=== PATIENT | female | born 1995 | race Caucasian/White ===

== ENCOUNTER → 2022-05-30 | Outpatient (CLI) | payer BC, OTHER ==
[2022-05-30 16:37] LABS: URINE CREATININE FOR RATIO 21 MG/DL (30-125)
[2022-05-30 16:38] LABS: URINE PROTEIN FOR RATIO ONLY < 6 MG/DL (6-12)
== END ==
LOC: LABNPT 15:51
PROVIDERS: ATTEND Obstetrics & Gynecology
DX: O13.9 Gestational [pregnancy-induced] hypertension without significant proteinuria, unspecified trimester (principal); Z3A.00 Weeks of gestation of pregnancy not specified
CPT/HCPCS: 82570; 84156

== ENCOUNTER 2022-08-25 01:59 | Outpatient (CLI) | payer BC ==
[~2022-08-25] VITALS: Ht 175.3 cm; Wt 120.2 kg
[2022-08-25 02:22] LABS: BILIRUBIN,URINE NEGATIVE (NEGATIVE); CLARITY,URINE CLEAR; COLOR,URINE YELLOW; GLUCOSE, URINE (UA) NEGATIVE (NEGATIVE); KETONES,URINE NEGATIVE (NEGATIVE); LEUKOCYTE ESTERASE ,URINE NEGATIVE (NEGATIVE); NITRITE,URINE NEGATIVE (NEGATIVE); PROTEIN,URINE NEGATIVE (NEGATIVE)
[2022-08-25 02:28] LABS: BACTERIA,URINE TRACE /HPF; RBC,URINE 0-2 /HPF; WBC,URINE 0-2 /HPF
[2022-08-25 02:31] VITALS: BP 127/85
[2022-08-25] MEDS ORDERED: PREN1TAB79 PO (02:52)
--- NOTE | 2022-08-25 12:06 | OB Triage Report ---
Standard Progress Note Progress Notes/Assess & Plan Date Seen by a Provider: Aug 25, 2022 Time Seen by a Provider: 04:00 Expected Date of Delivery: Aug 20, 2022 Gestational Age in Weeks: 40 Gestational Age in Days: 5 LMP/JOCELYNE Comment: As above. Progress/Assessment & Plan OB Pelts Skinner: Patient at 40 5/7 weeks today, presents for labor check. No leakage of fluid or bleeding. Vital signs stable, UA negative. Noted to have Reactive NST, Category I FHR tracing by OB RN, with mild contractions to palpation q3-7 minutes that do not appear to be very uncomfortable to patient. Cervix exam unchanged at 1.5 cm dilation and thick. Patient lives near hospital. She is scheduled for IOL tomorrow evening. Given routine labor precautions. Final Diagnosis 40 5/7 weeks Third trimester Not in labor JAMILA RODRIGUES DO Aug 25, 2022 12:06
== END 2022-08-25 04:25 | disposition home or self-care (01) ==
LOC: WSo 01:59 → LDRP 02:00 → WSo 04:25
PROVIDERS: ATTEND Obstetrics & Gynecology
DX: O62.9 Abnormality of forces of labor, unspecified (principal); Z3A.00 Weeks of gestation of pregnancy not specified
CPT/HCPCS: 81000; 99213

== ENCOUNTER 2022-08-26 01:05 | Inpatient (IN) | payer BC ==
[2022-08-26] VITALS (71 sets, daily range): BP systolic 102–162; BP diastolic 57–95
[~2022-08-26] VITALS: Ht 175.3 cm; Wt 118.4 kg
[~2022-08-26 01:05] MED LIST: PREN1TAB79 PO
[2022-08-26 01:41] LABS: BILIRUBIN,URINE NEGATIVE (NEGATIVE); CLARITY,URINE CLEAR; COLOR,URINE YELLOW; GLUCOSE, URINE (UA) NEGATIVE (NEGATIVE); KETONES,URINE 2+ (NEGATIVE); LEUKOCYTE ESTERASE ,URINE TRACE (NEGATIVE); NITRITE,URINE NEGATIVE (NEGATIVE); PH,URINE 6.5 (5-9); PROTEIN,URINE NEGATIVE (NEGATIVE)
[2022-08-26 01:44] LABS: BASOPHILS % (AUTO) 0 % (0-10); EOSINOPHILS % (AUTO) 0 % (0-10); HEMATOCRIT 37 % (35-52); HEMOGLOBIN 12.8 g/dL (11.5-16.0); LYMPHOCYTES # (AUTO) 1.6 10^3/uL (1.0-4.0); LYMPHOCYTES % (AUTO) 10 % (12-44); MEAN CORPUSCULAR HEMOGLOBIN 30 pg (25-34); MEAN CORPUSCULAR HGB CONC 35 g/dL (32-36); MEAN CORPUSCULAR VOLUME 87 fL (80-99); MEAN PLATELET VOLUME 11.1 fL (9.0-12.2); MONOCYTES # (AUTO) 0.7 10^3/uL (0.0-1.0); MONOCYTES % (AUTO) 4 % (0-12); NEUTROPHILS # (AUTO) 13.2 10^3/uL (1.8-7.8); NEUTROPHILS % (AUTO) 84 % (42-75); PLATELET COUNT 246 10^3/uL (130-400); WHITE BLOOD COUNT 15.7 10^3/uL (4.3-11.0)
[2022-08-26] MEDS ORDERED: MINERAL OIL 30 ML UDC TOP PRN (01:45)
[2022-08-26] MEDS ORDERED: fentaNYL 2 mcg/ml BUPIVA 0.125 100 ML ONE (01:47)
[2022-08-26 01:51] LABS: BACTERIA,URINE MODERATE /HPF
[2022-08-26 02:29] LABS: ANISOCYTOSIS SLIGHT; BAND NEUTROPHILS 1 %; LYMPHOCYTES % (MANUAL) 9 %; METAMYELOCYTES % 1 %; MONOCYTES % (MANUAL) 4 %; NEUTROPHILS % (MANUAL) 85 %
[2022-08-26] MEDS: D5 LR IV SOLUTION 1,000 ML IV SCH ×3 (02:30→21:10)
[2022-08-26] MEDS ORDERED: fentaNYL INJ 100 MCG/2 ML AMP ONE ×3 (03:13→13:51)
[2022-08-26] MEDS: fentaNYL 2 mcg/ml BUPIVA 0.125 100 ML EPI SCH ×2 (03:19→09:50)
[2022-08-26] MEDS ORDERED: BUPIVACAINE 0.25% 10 ML (SENSORCAINE) VIAL ONE (04:04)
[2022-08-26] MEDS ORDERED: METOCLOPRAMIDE INJ 10 MG/2 ML (REGLAN) IV PRN (04:15)
[2022-08-26] MEDS ORDERED: LACTATED RINGERS 1,000 ML IV ONE (04:15)
[2022-08-26] MEDS ORDERED: NALOXONE 0.4 MG/ML 1 ML (NARCAN) VIAL IV PRN ×3 (04:15→14:00)
[2022-08-26] MEDS ORDERED: diphenhydrAMINE 50 MG/ML INJ (BENADRYL) IV PRN (04:15)
[2022-08-26] MEDS ORDERED: ONDANSETRON 4 MG/2 ML (SDV) Z0FRAN IV PRN (04:15)
[2022-08-26] MEDS ORDERED: CATHETER FLUSH 10 ML SYR IV SCH (06:00)
--- NOTE | 2022-08-26 08:01 | History & Physical-OB ---
OB - Chief Complaint & HPI Date/Time Date of Admission: Date of Admission: Aug 26, 2022 at 01:37 Date seen by a Provider: Aug 26, 2022 Time Seen by a Provider: 07:30 Chief Complaint/History OB-Reason for Admission/Chief: Onset of Labor Hx : 1 Hx Para: 0 Hx Last Menstrual Period: 11/19/21 Expected Date of Delivery: Aug 20, 2022 Gestational Age in Weeks: 40 Gestational Age in Days: 6 Other reason for admission: Labor History of Labs @ 40 6/7 weeks scheduled for IOL this evening admitted to L&D early this AM in labor with cervical change, with regular and painful uterine contractions q3- 6 minutes at the time of admission. PNC: Uncomplicated PMH: Neg PSH: Tailbone cyst SHx: denies smoke/ETOH/Rx/STI/Genital HSV Meds: PNV: Allergy: Hydrocodone (N/V) ROS negative for all major systems (HEENT, CV, Respiratory, GI/, MS/NM, Skin, Endocrine) LABS: PAP (01/07) NEG MBT A POS PNAS NEG VDRL NR HIV NR HCV NR RUBELLA IMMUNE GC/CT NEG X 2 MSAFP/MULTIPLE MARKERS NEG 1 HR GLUCOLA 112 GBS NEG IMMUNIZATIONS: FLU 04/03/22 TDAP 06/25/22 Allergies and Home Medications Allergies Coded Allergies: hydrocodone (Verified Allergy, Unknown, 08/26/22) vomiting Patient Home Medication List Home Medication List Reviewed: Yes Vit W-Ca,Fe,FA(<1 mg) ( Vitamins) 27 Mg Iron-800 Mcg Tablet, 1 EACH PO DAILY, (Reported) Entered as Reported by: Lawanda Woody on 08/25/22 0252 Last Action: Last Taken Edited OB - History Hx of Present Care: Yes Obstetrical Complications: None Medical Complications: None Information Induced Hypertension: No Maternal Gestational Diabetes: No Hemorrhage: No Patient Past Medical History SEE ABOVE Social History/Family History Alcohol Use: Denies Use Recreational Drug Use: No 2nd Hand Smoke Exposure: No Immunizations Influenza Vaccine Up-to-Date: Yes; Up-to-Date Hepatitis A: No Tetanus Booster (TDap): Less than 5yrs OB - Admission Exam Physical Exam Vitals: Vital Signs 08/26/22 08/26/22 03:08 05:35 Temp 36.6 Pulse 102 Resp 18 B/P (MAP) 130/84 (99) Pulse Ox 97 O2 Delivery Room Air HEENT: Moist Membranes Heart: Rhythm Normal Lungs: Clear Abdomen: Gravid Extremities: Normal Cervical Dilatation: 4cm Effacement: Other (90) Station: -3 Membranes: Intact Amniotic Fluid: Thin Meconium Heart Rate: 150's Accelerations: Accelerations Present Decelerations: No Decelerations Short Term Variability: Present Glass Production Machine Operator Variability: Average (6-25) Contractions on Admission: < 5 Minutes Apart Intensity: Firm Labs Laboratory Tests Test 08/26/22 01:33 08/26/22 01:35 Range/Units Urine Color YELLOW Urine Clarity CLEAR Urine pH 6.5 5-9 Urine Specific [place] 1.020 1.016-1.022 Urine Protein NEGATIVE NEGATIVE Urine Glucose (UA) NEGATIVE NEGATIVE Urine Ketones 2+ H NEGATIVE Urine Nitrite NEGATIVE NEGATIVE Urine Bilirubin NEGATIVE NEGATIVE Urine Urobilinogen 1.0 < = 1.0 MG/DL Urine Leukocyte Esterase TRACE H NEGATIVE Urine RBC (Auto) NEGATIVE NEGATIVE Urine RBC NONE /HPF Urine WBC 10-25 H /HPF Urine Squamous Epithelial Cells 5-10 /HPF Urine Crystals NONE /LPF Urine Bacteria MODERATE H /HPF Urine Casts NONE /LPF Urine Mucus SMALL H /LPF Urine Culture Indicated YES White Blood Count 15.7 H 4.3-11.0 10^3/uL Red Blood Count 4.24 3.80-5.11 10^6/uL Hemoglobin 12.8 11.5-16.0 g/dL Hematocrit 37 35-52 % Mean Corpuscular Volume 87 80-99 fL Mean Corpuscular Hemoglobin 30 25-34 pg Mean Corpuscular Hemoglobin Concent 35 32-36 g/dL Red Cell Distribution Width 14.0 10.0-14.5 % Platelet Count 246 130-400 10^3/uL Mean Platelet Volume 11.1 9.0-12.2 fL Immature Granulocyte % (Auto) 1 % Neutrophils (%) (Auto) 84 H 42-75 % Lymphocytes (%) (Auto) 10 L 12-44 % Monocytes (%) (Auto) 4 0-12 % Eosinophils (%) (Auto) 0 0-10 % Basophils (%) (Auto) 0 0-10 % Neutrophils # (Auto) 13.2 H 1.8-7.8 10^3/uL Lymphocytes # (Auto) 1.6 1.0-4.0 10^3/uL Monocytes # (Auto) 0.7 0.0-1.0 10^3/uL Eosinophils # (Auto) 0.0 0.0-0.3 10^3/uL Basophils # (Auto) 0.0 0.0-0.1 10^3/uL Immature Granulocyte # (Auto) 0.1 0.0-0.1 10^3/uL Neutrophils % (Manual) 85 % Lymphocytes % (Manual) 9 % Monocytes % (Manual) 4 % Metamyelocytes % 1 % Band Neutrophils 1 % Anisocytosis SLIGHT OB - Assessment/Plan/Diagnosis Assessment Assessment: active labor Admission Dx 40 6/7 WEEKS LABOR Admission Status: Inpatient Order (span 2 midnights) Reason for Inpatient Admission: 40 6/7 WEEKS LABOR Plan Plan: Other ([facility] THIN [facility] @ 0740...IUPC PLACED. HAS EPIDURAL) Discharge Diagnosis Diagnosis: 40 6/7 WEEKS LABOR JAMILA RODRIGUES DO Aug 26, 2022 08:01
[2022-08-26] MEDS ORDERED: OXYTOCIN PRE-MIX DRIP 500 ML IV SCH (08:15)
[2022-08-26] MEDS ORDERED: LIDOCAINE PF 2% 5 ML (XYLOCAINE) VIAL ONE (10:11)
[2022-08-26] MEDS ORDERED: KETOROLAC 30 MG/ML VIAL ONE ×2 (11:13→15:35)
[2022-08-26] MEDS ORDERED: fentaNYL INJ 100 MCG/2 ML AMP IVP ONE (11:45)
--- NOTE | 2022-08-26 13:28 | Labor Progress Note ---
Labor Progress Note Labor Progress Note Date Seen by Provider: Aug 26, 2022 Time Seen by Provider: 13:05 Subjective: I have been on L&D since AROM this AM and following patient's progress. I performed a on another patient a little while ago. Patient has progressed to 7/C/0 @ 1115 hours per RN exam on 6 mIU Pitocin. Had to go to external toco because IUPC stopped working shortly after insertion. Patient has had sub-optimal epidural all day and complaining of one sided pain throughout labor. I gave her a one time dose of 100 mcg of IV fentanyl shortly after found to be 7 cm dilated to help alleviate her labor pain. I re-checked her myself at 1305 hours and also 7cm, -1 station, but cervix feels thicker and markedly edematous (RN agrees cervix more edematous than this AM). FHR tracing same as early this AM, Category I, baseline unchanged at 150, moderate variability, +accels, no decels. Contractions q3 minutes most of the day, sometimes q 4 minutes. I suggested re-checking patient's cervix at 1515 hours (4 hours from first found to be 7 cm) before making diagnosis of failure to progress. Patient is demanding a now, and does not want to wait until 1515 hours. I have counseled her in detail about pros and cons of on demand, to include risks of bleeding, infection, increased risk of DVT and future risk of having to have repeat with all future , as well as post-op pain and 6 week recovery in general after . Both patient and FOB understand all this and patient still wants a now. Yisel, patient's RN in room entire time during counseling. Patient voiced understanding about all counseling above, and again states she wants a . Pitocin turned off and OR crew called in for Primary , for patient refuses to labor any longer. Objective: Above Assessment/Plan: Asaf Melchor is a (27 /Para 1 / 0,Gestational Age (wks)40 6/7 weeks. Currently at 7 cm for 2+ hours, cervix edematous, patient states trying not to push prematurely. Patient refuses to labor any further demands . After appropriate counseling of pros and cons of on demand, patient wishes to continue with now. Pitocin turned off and preparations being made for on demand. See consent form. Vitals - Labs Vital Signs - I&O Vital Signs Date Time Temp Pulse Resp B/P (MAP) Pulse Ox O2 Delivery O2 Flow Rate FiO2 08/26/22 07:05 99 18 115/63 (80) 99 Room Air 08/26/22 06:50 93 18 104/57 (73) 99 Room Air 08/26/22 06:35 97 18 122/84 (97) 99 Room Air 08/26/22 06:20 96 18 124/72 (89) 97 Room Air 08/26/22 06:05 86 18 134/78 (96) 99 Room Air 08/26/22 05:50 102 18 125/79 (94) 97 Room Air 08/26/22 05:35 102 18 130/84 (99) 97 Room Air 08/26/22 05:20 84 18 126/75 (92) 97 Room Air 08/26/22 05:05 88 18 133/83 (100) 97 Room Air 08/26/22 04:50 93 18 127/71 (89) 99 Room Air 08/26/22 04:35 109 18 122/70 (87) 97 Room Air 08/26/22 04:20 110 18 125/72 (89) 98 Room Air 08/26/22 04:10 92 18 126/76 (93) 97 Room Air 08/26/22 04:05 100 18 120/74 (89) 97 Room Air 08/26/22 04:00 112 18 120/68 (85) 98 Room Air 08/26/22 03:55 114 18 125/72 (89) 96 Room Air 08/26/22 03:50 87 18 130/72 (91) 97 Room Air 08/26/22 03:45 97 18 122/67 (85) 100 Room Air 08/26/22 03:37 94 18 125/70 (88) 98 Room Air 08/26/22 03:32 88 18 124/66 (85) 98 Room Air 08/26/22 03:28 93 18 127/72 (90) 98 Room Air 08/26/22 03:23 86 18 121/68 (85) 98 Room Air 08/26/22 03:17 106 18 129/60 (83) 98 Room Air 08/26/22 03:15 116 18 127/64 (85) 100 Room Air 08/26/22 03:12 116 18 127/64 (85) 100 Room Air 08/26/22 03:08 36.6 118 18 133/73 (93) 99 Room Air 08/26/22 03:02 105 18 133/62 (85) 98 Room Air 08/26/22 02:58 98 18 140/68 (92) 98 Room Air 08/26/22 02:51 104 18 128/68 (88) 98 Room Air 08/26/22 02:46 104 18 128/70 (89) 98 Room Air 08/26/22 02:41 102 18 128/71 (90) 100 Room Air 08/26/22 02:36 102 18 136/70 (92) 98 Room Air 08/26/22 02:00 36.7 108 18 100 Room Air 08/26/22 01:19 36.7 107 18 135/89 (104) 100 Room Air I & O 08/26/22 07:00 Intake Total 1000 ml Balance 1000 ml Labs Laboratory Tests 08/26/22 01:33: Urine Color YELLOW, Urine Clarity CLEAR, Urine pH 6.5, Urine Specific [place] 1.020, Urine Protein NEGATIVE, Urine Glucose (UA) NEGATIVE, Urine Ketones 2+H, Urine Nitrite NEGATIVE, Urine Bilirubin NEGATIVE, Urine Urobilinogen 1.0, Urine Leukocyte Esterase TRACEH, Urine RBC (Auto) NEGATIVE, Urine RBC NONE, Urine WBC 10-25H, Urine Squamous Epithelial Cells 5-10, Urine Crystals NONE, Urine Bacteria MODERATEH, Urine Casts NONE, Urine Mucus SMALLH, Urine Culture Indicated YES 08/26/22 01:35: White Blood Count 15.7H, Red Blood Count 4.24, Hemoglobin 12.8, Hematocrit 37, Mean Corpuscular Volume 87, Mean Corpuscular Hemoglobin 30, Mean Corpuscular Hemoglobin Concent 35, Red Cell Distribution Width 14.0, Platelet Count 246, Mean Platelet Volume 11.1, Immature Granulocyte % (Auto) 1, Neutrophils (%) (Auto) 84H, Lymphocytes (%) (Auto) 10L, Monocytes (%) (Auto) 4, Eosinophils (%) (Auto) 0, Basophils (%) (Auto) 0, Neutrophils # (Auto) 13.2H, Lymphocytes # (Auto) 1.6, Monocytes # (Auto) 0.7, Eosinophils # (Auto) 0.0, Basophils # (Auto) 0.0, Immature Granulocyte # (Auto) 0.1, Neutrophils % (Manual) 85, Lymphocytes % (Manual) 9, Monocytes % (Manual) 4, Metamyelocytes % 1, Band Neutrophils 1, Anisocytosis SLIGHT JAMILA RODRIGUES DO Aug 26, 2022 13:28
[2022-08-26] MEDS ORDERED: ceFAZolin INJECTION 2,000 MG in NS (IVPB) 50 ML IV ONE (13:30)
[2022-08-26] MEDS ORDERED: CITRIC ACID/SOB CIT (BICITRA) 30 ML UDC PO ONE (13:30)
[2022-08-26] MEDS ORDERED: AZITHROMYCIN INJECTION 500 MG in NS (IVPB) 250 ML IV ONE (13:30)
[2022-08-26] MEDS ORDERED: METOCLOPRAMIDE INJ 10 MG/2 ML (REGLAN) IV ONE (13:30)
[2022-08-26] MEDS ORDERED: LACTATED RINGERS 1,000 ML IV PRN ×2 (13:30)
[2022-08-26] MEDS ORDERED: CATHETER FLUSH 10 ML SYR IV PRN (13:30)
[2022-08-26] MEDS ORDERED: FAMOTIDINE 20MG/2ML IV (PEPCID) ONE (13:41)
[2022-08-26] MEDS ORDERED: FAMOTIDINE 20MG/2ML IV (PEPCID) IVP ONE (13:45)
[2022-08-26] MEDS ORDERED: OXYTOCIN PRE-MIX DRIP 1,000 ML IV ONE (13:51)
[2022-08-26] MEDS ORDERED: MEASLES,MUMPS,RUBELLA 1 EA INJ SC SCH (14:00)
[2022-08-26] MEDS: CATHETER FLUSH 10 ML SYR IV SCH ×2 (14:00→21:09)
[2022-08-26] MEDS ORDERED: ONDANSETRON 4 MG/2 ML (SDV) Z0FRAN IVP PRN (14:00)
[2022-08-26] MEDS ORDERED: TETANUS,DIPTH,PERTUSS P/F (BOOSTRIX) 0.5 ML VIAL IM SCH (14:00)
[2022-08-26] MEDS ORDERED: METHYLERGONOVINE 0.2 MG/ML (METHERGINE) AMP ONE (15:15)
[2022-08-26] MEDS: KETOROLAC 30 MG/ML VIAL IV SCH ×2 (15:45→21:09)
--- NOTE | 2022-08-26 16:09 | OB/GYN Operative Report ---
Operative Report Date of Procedure:Aug 26, 2022 Preoperative Diagnosis: 40 6/7 weeks, 7cm in Labor, Patient refuses further labor Postoperative Diagnosis: Same Name of the Procedure: Section Surgeon: Jamila Rodrigues D.O. Plate Furnace Operator(s): Thao Davis RN (compliance assistant) Corporate Relations Manager: Melvin Brizuela CRNA Anesthesia: Spinal Indications for Procedure: 40 6/7 weeks EGA at 7 cm for 2 hours in active labor, patient refusing to attempt labor any further, demands after appropriate counseling. Antibiotics: Ancef 2 gm IV, Zithromax 500 mg IV Drain: Corey Fluids (ML): Crystalloid 1,000 Urine 300 EBL 300 Specimen: Cord gas pH 7.32 Findings of the Procedure: Normal cord and placenta. Baby in LOT position at delivery. Normal adnexa bilaterally. Three cm left sided extension of uterine incision on the left and 2 cm extension on the right. converted to transverse lie with attempt to apply vacuum for delivery, ended up performing delivery breech without difficulty. Light meconium as previously noted in labor. Delivery productive of viable 7 lbs. 15 onz. male infant with 8/9. Complications: None Description: The patient was counseled and consented both verbally and in writing for surgery. She was taken to the OR where a spinal was peformed without complication. Normal heart rate documented with doppler before and after spinal. She was placed in supine position with a right hip roll, pubic area hair trimmed, underwent a vaginal betadine prep and an abdominal prep, then draped after a surgical time out was done. An adequate surgical skin level was confirmed. A Pfannenstiel skin incision was made. Sharp dissection was made down to level of fascia that was nicked on both sides of midline. Fascial incision was extended laterally sharply with scissors. The fascia was taken up and down sharply, the peritoneal cavity entered bluntly and a bladder blade inserted. A bladder flap was created and a low transverse uterine incision was made that was extended laterally bluntly. The head was elevated from the deep pelvis and brought to the level of the uterine incision. An attempt was made to apply a vacuum on the head, displacing the head and converting the lie to transverse. I then delivered the baby from a breech fashion bringing the buttocks and hips out the uterine incision, reducing the left and right legs then the right and left arms and the head delivered with mild fundal pressure. Nasopharyngeal suction was performed on the abdomen by me. The cord was clamped twice and cut between the clamps. A segment of cord was set aside for gases. IV Pitocin rapid infusion was started and the placenta delivered spontaneously. The uterus was exteriorized and wrapped with a moist laparotomy sponge. The uterine cavity was wiped with a moist lap and no membranes noted. Ring forceps were place along the middle of the uterine incision. The left extension first layer was reapproximated with running locking layer of 0-Vicryl. The rest of the uterine incision first layer was closed separately with running locking 0-Vicryl. The second layer was closed with a single running layer of 0- Vicryl. Two figure eight sutures of 0-Vicryl were placed along the incision for hemostasis. the incision was dry. The patient was given Methergine 0.2 mg IM for uterine atony. The posterior and anterior cul-de-sacs were irrigated and suctioned and noted to be dry. The uterus and adnexa were allowed to fall back into the pelvis. The uterine incision, peritoneal edges, muscle bellies were dry. The fascia was closed with a single running 1-Vicryl. The subcutaneous fat was irrigated and suctioned and noted to be dry. The skin was closed with ru nning subcuticular 3-0 Monocryl, followed by steri-strips and a sterile dressing. All counts were correct. The patient was transferred to the recovery area in good condition. JAMILA RODRIGUES DO Aug 26, 2022 16:09
[2022-08-26] MEDS: DOCUSATE SODIUM 100 MG (COLACE) CAP PO SCH (21:09)
[2022-08-27] MEDS: KETOROLAC 30 MG/ML VIAL IV SCH ×2 (02:44→08:18)
[2022-08-27] MEDS: CATHETER FLUSH 10 ML SYR IV SCH (02:44)
[2022-08-27 03:00] VITALS: BP 122/75
[2022-08-27 04:12] LABS: BASOPHILS % (AUTO) 0 % (0-10); EOSINOPHILS % (AUTO) 0 % (0-10); HEMATOCRIT 30 % (35-52); HEMOGLOBIN 10.2 g/dL (11.5-16.0); LYMPHOCYTES # (AUTO) 1.6 10^3/uL (1.0-4.0); LYMPHOCYTES % (AUTO) 11 % (12-44); MEAN CORPUSCULAR HEMOGLOBIN 30 pg (25-34); MEAN CORPUSCULAR HGB CONC 34 g/dL (32-36); MEAN CORPUSCULAR VOLUME 89 fL (80-99); MEAN PLATELET VOLUME 11.2 fL (9.0-12.2); MONOCYTES % (AUTO) 7 % (0-12); NEUTROPHILS # (AUTO) 11.8 10^3/uL (1.8-7.8); NEUTROPHILS % (AUTO) 81 % (42-75); PLATELET COUNT 176 10^3/uL (130-400); WHITE BLOOD COUNT 14.5 10^3/uL (4.3-11.0)
--- NOTE | 2022-08-27 06:19 | Postpartum Progress Note ---
Post Op Post-operative Day #1 Subjective: Patient is without complaints. Ambulating, voiding after aguilar removed. Tolerating a regular diet without nausea or vomiting. Normal lochia. Pain is well controlled with oral pain medications. Objective: VSS/AF, HCT 30% Physical Exam: General - Alert and oriented, no apparent distress Abdomen - Soft, appropriately tender to palpation, non-distended, fundus firm at umbilicus Incision - clean, dry and intact; no erythema or induration, no drainage Extremities - no edema, negative Db's bilaterally Assessment: post-operative day # 1, status post . Recovering well, hemodynamically stable Plan: Routine post-operative care. Encourage breast feeding. Encourage ambulation. VTE prophylaxis: SCDs. Continue PNV after discharge from hospital, planning on breast feeding. Plan for discharge: should be ready to go home tomorrow. Will sign out patient to Dr. Luciano at 0700 in my absence. No questions or concerns voiced. RN in room during encounter. Vitals - Labs Vital Signs - I&O Vital Signs Date Time Temp Pulse Resp B/P (MAP) Pulse Ox O2 Delivery O2 Flow Rate FiO2 08/27/22 03:00 36.9 105 18 122/75 (91) 97 Room Air 08/26/22 23:44 37.0 107 18 113/66 (82) 97 Room Air 08/26/22 19:00 37.2 94 18 130/74 (92) 98 Room Air 08/26/22 17:00 36.8 79 18 119/62 (81) 98 Room Air 08/26/22 16:40 36.3 20 120/95 (103) 99 Room Air 08/26/22 16:40 Room Air 08/26/22 16:30 20 126/79 (95) 99 Room Air 08/26/22 16:30 Room Air 08/26/22 16:20 20 125/81 (96) 99 Room Air 08/26/22 16:15 Room Air 08/26/22 16:10 20 125/81 (96) 99 Room Air 08/26/22 16:00 Room Air 08/26/22 16:00 20 118/73 (88) 98 Room Air 08/26/22 15:51 36.2 20 125/75 (92) 100 Room Air 08/26/22 15:51 Room Air 08/26/22 13:15 100 Room Air 08/26/22 13:00 100 Room Air 08/26/22 12:45 83 20 102/62 (75) 100 Room Air 08/26/22 12:30 37.0 93 20 134/74 (94) 100 Room Air 08/26/22 12:16 68 20 120/69 (86) 100 Room Air 08/26/22 12:02 71 18 135/67 (89) 99 Room Air 08/26/22 11:47 82 18 125/69 (87) 100 Room Air 08/26/22 11:31 78 18 123/70 (87) 99 Room Air 08/26/22 11:16 84 18 115/59 (77) 99 Room Air 08/26/22 11:02 92 18 143/90 (107) 100 Room Air 08/26/22 10:47 92 18 131/93 (106) Room Air 08/26/22 10:44 89 18 142/88 (106) 100 Room Air 08/26/22 10:40 92 18 143/92 (109) 100 Room Air 08/26/22 10:32 80 18 134/93 (107) 100 Room Air 08/26/22 10:17 81 18 151/85 (107) 100 Room Air 08/26/22 10:13 37.2 08/26/22 10:02 82 18 153/90 (111) 100 Room Air 08/26/22 09:46 88 18 139/80 (99) 100 Room Air 08/26/22 09:31 83 18 141/84 (103) 100 Room Air 08/26/22 09:18 77 18 135/85 (102) 100 Room Air 08/26/22 09:01 86 18 140/86 (104) 100 Room Air 08/26/22 08:45 81 18 136/77 (96) 97 Room Air 08/26/22 08:30 93 20 134/74 (94) 99 Room Air 08/26/22 08:15 93 20 132/84 (100) 98 Room Air 08/26/22 08:00 37.0 101 20 127/75 (92) 99 Room Air 08/26/22 07:45 104 20 129/79 (96) 98 Room Air 08/26/22 07:35 36.9 94 20 127/72 (90) 98 Room Air 08/26/22 07:20 94 20 115/62 (79) 98 Room Air 08/26/22 07:20 94 20 115/62 (79) 98 Room Air 08/26/22 07:05 99 18 115/63 (80) 99 Room Air 08/26/22 06:50 93 18 104/57 (73) 99 Room Air 08/26/22 06:35 97 18 122/84 (97) 99 Room Air 08/26/22 06:20 96 18 124/72 (89) 97 Room Air I & O 08/27/22 07:00 Intake Total 2145 ml Output Total 300 ml Balance 1845 ml Labs Laboratory Tests 08/27/22 04:02: White Blood Count 14.5H, Red Blood Count 3.43L, Hemoglobin 10.2#L, Hematocrit 30L, Mean Corpuscular Volume 89, Mean Corpuscular Hemoglobin 30, Mean Corpuscular Hemoglobin Concent 34, Red Cell Distribution Width 14.3, Platelet Count 176, Mean Platelet Volume 11.2, Immature Granulocyte % (Auto) 1, Neutrophils (%) (Auto) 81H, Lymphocytes (%) (Auto) 11L, Monocytes (%) (Auto) 7, Eosinophils (%) (Auto) 0, Basophils (%) (Auto) 0, Neutrophils # (Auto) 11.8H, Lymphocytes # (Auto) 1.6, Monocytes # (Auto) 1.0, Eosinophils # (Auto) 0.0, Basophils # (Auto) 0.0, Immature Granulocyte # (Auto) 0.1 JAMILA RODRIGUES DO Aug 27, 2022 06:19
[2022-08-27 08:16] VITALS: BP 113/72
[2022-08-27] MEDS: DOCUSATE SODIUM 100 MG (COLACE) CAP PO SCH ×2 (08:18→20:31)
--- NOTE | 2022-08-27 13:00 | Anesthesia-Regional Post-Op ---
Regional Patient Condition Mental Status: Alert, Oriented x3 Circulation: Same as Pre-Op Headache: Absent Sensation: Full Recovery Motor Block: Absent Post Op Complications Complications None Follow Up Care/Instructions Patient Instructions None needed. Anesthesia/Patient Condition Patient is doing well, no complaints, stable vital signs, no apparent adverse anesthesia problems. No complications reported per nursing. CARLO BE CRNA Aug 27, 2022 13:00
[2022-08-27 13:45] VITALS: BP 118/75
[2022-08-27] MEDS: IBUPROFEN 600 MG (MOTRIN) TAB PO SCH ×2 (14:06→20:31)
[2022-08-27] MEDS: ACETAMINOPHEN 500 MG TAB (TYLENOL) PO PRN (14:06)
[2022-08-27 16:40] VITALS: BP 122/74
[2022-08-27 20:31] VITALS: BP 128/79
[2022-08-28 04:22] VITALS: BP 120/77
[2022-08-28] MEDS: IBUPROFEN 600 MG (MOTRIN) TAB PO SCH ×2 (04:22→10:07)
--- NOTE | 2022-08-28 07:14 | Postpartum Progress Note ---
TAYLOR BRAVO 08/28/22 0713: Note Note Day # 2 Subjective: Patient is without complaints. Ambulating, voiding. Tolerating a regular diet without nausea or vomiting. Normal lochia. Pain is well controlled with oral pain medications. Objective: Physical Exam: General - Alert and oriented, no apparent distress Abdomen - Soft, appropriately tender to palpation, non-distended, fundus firm at umbilicus, incision c/d/i Extremities - no edema, negative Db's bilaterally Assessment: Post- day # 2, status post . Acute blood loss anemia Plan: Routine care. Encourage breast feeding. Encourage ambulation. Ferrous sulfate supplementation. Plan for discharge today. Vitals - Labs Vital Signs - I&O Vital Signs Date Time Temp Pulse Resp B/P (MAP) Pulse Ox O2 Delivery O2 Flow Rate FiO2 08/28/22 04:22 36.6 72 18 120/77 (91) 99 Room Air 08/27/22 20:31 36.8 95 18 128/79 (95) 99 Room Air 08/27/22 16:40 36.6 88 18 122/74 (90) 98 Room Air 08/27/22 13:45 36.7 99 18 118/75 (89) 98 Room Air 08/27/22 08:16 37.2 103 18 113/72 (86) 98 Room Air I & O 08/28/22 07:00 Intake Total 1000 ml Output Total 500 ml Balance 500 ml Labs Microbiology 08/26/22 Urine Culture - Final, Complete Gram Pos Mixed Bacterial Becki See Comments RUBEN HUFFMAN DO 08/28/22 0742: Note Note Verification and Attestation of Medical Student E/M Service A medical student performed and documented this service in my presence. I reviewed and verified all information documented by the medical student and made modifications to such information, when appropriate. I personally performed the physical exam and medical decision making. Ruben Huffman Aug 28, 2022,07:42 TAYLOR BRAVO Aug 28, 2022 07:13 RUBEN HUFFMAN DO Aug 28, 2022 07:42
--- NOTE | 2022-08-28 07:57 | Discharge Inst-Women's Service ---
Discharge Inst-Women's Serv Depart Medication/Instructions New, Converted or Re-Newed RX: Transmitted to Pharmacy Final Diagnosis POD 2 PLTCS Problems Reviewed?: Yes Consults/Follow Up Additional Follow Up: Yes Orders/Referrals Dr. Luciano in 7-10 days and in 6 weeks Activity Activity: Activity as Tolerated Driving Instructions: No Driving for 1 Week NO SMOKING: NO SMOKING Nothing Inside Vagina: No Douching, No [place], No Tampons Diet Discharge Diet: No Restrictions Symptoms to Report to : Bleeding Excessive, Pain Increased, Fever Over 101 Degrees F, Vaginal Bleeding Increase, Questions/Concerns For Any Problems or Questions: Contact Your Physician Skin/Wound Care Infection Signs and Symptoms: Increased Redness, Foul Odor of Wound, Increased Drainage, Skin Itchy or Has a Rash, Increased Swelling, Temperature Above 101 F Operative Area Clean and Dry: Keep Incision Clean/Dry Stitches/[place]/Dermabond: Dermabond, Care of Stitches Bathing Instructions: NILAY Warner DO Aug 28, 2022 07:57
[2022-08-28] MEDS ORDERED: IBUP-844 PO (07:58)
[2022-08-28] MEDS ORDERED: ACET-93 PO (07:58)
[2022-08-28 10:00] VITALS: BP 131/83
[2022-08-28] MEDS: DOCUSATE SODIUM 100 MG (COLACE) CAP PO SCH (10:07)
[2022-08-28] MEDS: ACETAMINOPHEN 500 MG TAB (TYLENOL) PO PRN (10:07)
[2022-08-28 11:50] VITALS: BP 131/83
== END 2022-08-28 11:50 | disposition home or self-care (01) | DRG 787 ==
LOC: WSo 01:05 → LDRP 01:06 → WSo 01:36 → LDRP 01:37
PROVIDERS: ADMIT Obstetrics & Gynecology; ATTEND Obstetrics & Gynecology
PROC: 10D00Z1 Extraction of Products of Conception, Low, Open Approach (ICD-10-PCS; principal; 2022-08-26 13:59)
DX: O48.0 Post-term pregnancy (principal); D62 Acute posthemorrhagic anemia; Z37.0 Single live birth; Z3A.40 40 weeks gestation of pregnancy; O90.81 Anemia of the puerperium
CPT/HCPCS: 36415; 81000; 85007; 85025; 85027; 86780; 86850; 86900; 86901; 87088; 99212

== ENCOUNTER 2022-08-31 11:45 | Emergency (ER) | payer BC ==
[~2022-08-31 11:45] MED LIST changes: +ACET-93 PO; +IBUP-844 PO
--- NOTE | 2022-08-31 12:07 | ED General ---
General Chief Complaint: (<6 weeks) Stated Complaint: POST C-SECT HEADACHES Nursing Triage Note: PT AMB TO [facility] 5 WITH C/O ZAVALA SINCE SATURDAY AFTER HAVING A SATURDAY. PT STATES HER EPIDURAL PLACEMENT WAS NOT CORRECT. PTS DONE BY DR DUFFY Source of Information: Patient, Family () Exam Limitations: No Limitations History of Present Illness Date Seen by Provider: Aug 31, 2022 Time Seen by Provider: 11:58 Initial Comments Patient is a 27-year-old G1, P1 who presents to the emergency department with a chief complaint of frontal and occipital headache since Saturday. Patient is status post delivery of full-term male 5 days ago via . She reports no problems during or delivery. She failed to progress after reaching 8 cm and required . Did not have any problems with blood pressure prior to discharge. She presents with blood pressure about 160/103 today. She is taken Tylenol, ibuprofen and Excedrin for headache. Currently rates it at a 2. She denies any vision changes. No shortness of breath. No a bdominal pain other than expected after section. No significant vaginal bleeding. No swelling in her legs or cramps cramping in her calves. Denies nausea vomiting. Timing/Duration: 3-4 Days Severity: Moderate Associated Systoms: Headaches Allergies and Home Medications Allergies Coded Allergies: hydrocodone (Verified Allergy, Unknown, 08/26/22) vomiting Patient Home Medication List Home Medication List Reviewed: Yes Acetaminophen (Acetaminophen) 500 Mg Tablet, 1,000 MG PO Q6H PRN for PAIN-MILD (1-4) Prescribed by: NILAY LUCIANO on 08/28/22 0758 Ibuprofen (Ibu) 600 Mg Tablet, 600 MG PO Q6H Prescribed by: NILAY LUCIANO on 08/28/22 0758 Vit W-Ca,Fe,FA(<1 mg) ( Vitamins) 27 Mg Iron-800 Mcg Tablet, 1 EACH PO DAILY, (Reported) Entered as Reported by: Lawanda Woody on 08/25/22 0252 Review of Systems Review of Systems Constitutional: see HPI EENTM: no symptoms reported Respiratory: no symptoms reported Cardiovascular: no symptoms reported Gastrointestinal: no symptoms reported Genitourinary: no symptoms reported : No Musculoskeletal: no symptoms reported Skin: no symptoms reported Psychiatric/Neurological: Headache All Other Systems Reviewed Negative Unless Noted: Yes Past Fexqwfa-Rtrwjm-Mtssmy Hx Patient Social History Tobacco Use?: No Use of E-Cig and/or Vaping dev: No Substance use?: No Alcohol Use?: No Pt feels they are or have been: No Immunizations Up To Date Tetanus Booster (TDap): Less than 5yrs Influenza Vaccine Up-to-Date: Yes; Up-to-Date First/Initial COVID19 Vaccinat: X3 Past Medical History Surgery/Hospitalization HX: HYPOGLYCEMIA Currently Using CPAP: No Currently Using BIPAP: No Physical Exam Vital Signs Vital Signs - First Documented 08/31/22 11:55 Temp 36.9 Pulse 80 Resp 18 B/P (MAP) 145/113 (124) Capillary Refill : Height, Weight, BMI Height: '" Weight: lbs. oz. kg; 38.52 BMI Method: General Appearance: No Apparent Distress, WD/WN Eyes: Bilateral Eye Normal Inspection, Bilateral Eye PERRL, Bilateral Eye EOMI HEENT: PERRL/EOMI Neck: Normal Inspection Respiratory: Lungs Clear, Normal Breath Sounds, No Accessory Muscle Use, No Respiratory Distress Cardiovascular: Regular Rate, Rhythm, Normal Peripheral Pulses Gastrointestinal: Soft, Tenderness (Mild lower abdominal tenderness without rebound or guarding. No right upper quadrant tenderness) Extremity: Normal Capillary Refill, Normal Inspection, Normal Range of Motion, Non Tender, No Calf Tenderness, No Pedal Edema, Other (2+ DTRs bilateral patella; 2-3 beat clonus bilateral lower extremity) Neurologic/Psychiatric: Alert, Oriented x3, No Motor/Sensory Deficits, Normal Mood/Affect, operations and maintenance technician II-XII Norm as Tested Skin: Normal Color, Warm/Dry Progress/Results/Core Measures Suspected Sepsis SIRS Temperature: Pulse: 80 Respiratory Rate: 18 Laboratory Tests 08/31/22 12:14: White Blood Count 11.2H Blood Pressure 145 /113 Mean: 124 Laboratory Tests 08/31/22 12:14: Creatinine 0.59L, Platelet Count 325, Total Bilirubin 0.3 Results/Orders Lab Results Laboratory Tests Test 08/31/22 12:05 08/31/22 12:14 Range/Units Urine Color YELLOW Urine Clarity CLEAR Urine pH 6.0 5-9 Urine Specific [place] 1.025 H 1.016-1.022 Urine Protein TRACE H NEGATIVE Urine Glucose (UA) NEGATIVE NEGATIVE Urine Ketones NEGATIVE NEGATIVE Urine Nitrite NEGATIVE NEGATIVE Urine Bilirubin NEGATIVE NEGATIVE Urine Urobilinogen 0.2 < = 1.0 MG/DL Urine Leukocyte Esterase NEGATIVE NEGATIVE Urine RBC (Auto) 3+ H NEGATIVE Urine RBC 0-2 /HPF Urine WBC 2-5 /HPF Urine Squamous Epithelial Cells 5-10 /HPF Urine Crystals NONE /LPF Urine Bacteria NEGATIVE /HPF Urine Casts NONE /LPF Urine Mucus NEGATIVE /LPF Urine Culture Indicated NO White Blood Count 11.2 H 4.3-11.0 10^3/uL Red Blood Count 4.19 3.80-5.11 10^6/uL Hemoglobin 12.4 # 11.5-16.0 g/dL Hematocrit 37 35-52 % Mean Corpuscular Volume 89 80-99 fL Mean Corpuscular Hemoglobin 30 25-34 pg Mean Corpuscular Hemoglobin Concent 33 32-36 g/dL Red Cell Distribution Width 13.7 10.0-14.5 % Platelet Count 325 130-400 10^3/uL Mean Platelet Volume 10.4 9.0-12.2 fL Immature Granulocyte % (Auto) 2 % Neutrophils (%) (Auto) 73 42-75 % Lymphocytes (%) (Auto) 18 12-44 % Monocytes (%) (Auto) 5 0-12 % Eosinophils (%) (Auto) 2 0-10 % Basophils (%) (Auto) 0 0-10 % Neutrophils # (Auto) 8.2 H 1.8-7.8 10^3/uL Lymphocytes # (Auto) 2.0 1.0-4.0 10^3/uL Monocytes # (Auto) 0.6 0.0-1.0 10^3/uL Eosinophils # (Auto) 0.2 0.0-0.3 10^3/uL Basophils # (Auto) 0.1 0.0-0.1 10^3/uL Immature Granulocyte # (Auto) 0.2 H 0.0-0.1 10^3/uL Sodium Level 141 135-145 MMOL/L Potassium Level 3.6 3.6-5.0 MMOL/L Chloride Level 111 H 98-107 MMOL/L Carbon Dioxide Level 17 L 21-32 MMOL/L Anion Gap 13 5-14 MMOL/L Blood Urea Nitrogen 11 7-18 MG/DL Creatinine 0.59 L 0.60-1.30 MG/DL Estimat Glomerular Filtration Rate 127 BUN/Creatinine Ratio 19 Glucose Level 81 70-105 MG/DL Uric Acid 5.0 2.6-7.2 MG/DL Calcium Level 8.7 8.5-10.1 MG/DL Corrected Calcium 9.0 8.5-10.1 MG/DL Total Bilirubin 0.3 0.1-1.0 MG/DL Aspartate Amino Transf (AST/SGOT) 15 5-34 U/L Alanine Aminotransferase (ALT/SGPT) 17 0-55 U/L Alkaline Phosphatase 166 H 40-136 U/L Lactate Dehydrogenase 183 125-220 U/L Total Protein 6.8 6.4-8.2 GM/DL Albumin 3.6 3.2-4.5 GM/DL My Orders Orders - SHERRI CASTILLO MD Ed Iv/Invasive Line Start (08/31/22 12:08) Cbc With Automated Diff (08/31/22 12:08) Comprehensive Metabolic Panel (08/31/22 12:08) Uric Acid (08/31/22 12:08) LDH (08/31/22 12:08) Ua Culture If Indicated (08/31/22 12:08) Ketorolac Injection (Toradol Injection) (08/31/22 13:15) Vital Signs/I&O 08/31/22 11:55 Temp 36.9 Pulse 80 Resp 18 B/P (MAP) 145/113 (124) Capillary Refill : Blood Pressure Mean: 124 Progress Note : Time: 13:11 Progress Note Patient seen and evaluated by me. Evaluation today includes physical exam, CBC, Chem-12, LDH, uric acid, urinalysis. Pertinent physical exam findings well- developed well-nourished 27-year-old female in no acute distress complaining of a mild to moderate headache. Currently rated at a "2". No focal neurologic findings. 1-2 beat clonus bilaterally. Brisk bilateral patellar reflexes. Abdomen appropriately tender post . Bowel sounds are present. Lungs are clear heart is regular. Triage blood pressure 145/113, pulse in the 80s, normal oxygen saturations. Differential diagnosis based on history and physical exam, new onset hypertension, preeclampsia, urinary tract infection, dehydration. Labs independently reviewed by me, CBC is normal, chemistry is normal, uric acid is 5, LDH is within normal range. Urinalysis shows trace protein with a little bit of blood product secondary to ongoing lochia. Patient was not treated with any medication for blood pressure here in the emergency department. Her blood pressure is now 141/94. Still has mild headache. Will treat with Toradol. Vasquez randhawa was discussed with Dr. Brambila who also delivered her baby 5 days ago. He concurs with the diagnosis of mild hypertension postdelivery. She does not have preeclampsia at this point with normal labs and a basically normal exam. Patient does state that initially her headache was worse with standing up and moving around especially first thing in the morning. She probably does have an element of postdural puncture headache. At this point being a week out of her spinal I do not think that she needs IV caffeine or a blood patch. She is comfortable at the moment. I recommended [id number] caffeine in the form of Mountain Dew and she can continue her Excedrin. She is comfortable with the plan of care. All questions are sought and answered. Return precautions have been provided both in written and verbal form. Departure Communication (Admissions) Time/Spoke to Consulting Phy: 13:[address] Siegel (OB) Impression Primary Impression: Headache Qualified Codes: R51.9 - Headache, unspecified Additional Impression: Temporary high blood pressure Disposition: 01 HOME, SELF-CARE Condition: Improved Departure-Patient Inst. Decision time for Depature: 13:15 Referrals: NILAY LUCIANO DO (PCP/Family) Primary Care Physician Patient Instructions: Headache, Adult (DC) Add. Discharge Instructions: Monitor your blood pressure once or twice a day over the next 2 or [address]. [address] base with Dr. Luciano's office next week. If you have a couple of blood pressure readings that are consistently above 160 (top number) or 105(bottom number) please return to the emergency department for reevaluation. Return to the emergency room if you have worsening headache, vision changes, swelling in your legs or shortness of breath or other emergent, concerning symptoms. You can take Excedrin 2 tablets every 6 hours as needed for headache. Also Mountain Dew (with its high caffeine content) may help your headache even more if your headache is related to your spinal from delivery. Continue your vitamins. Copy Copies To 1: NILAY LUCIANO KATHRYN M MD Aug 31, 2022 12:07
[2022-08-31 12:16] LABS: BILIRUBIN,URINE NEGATIVE (NEGATIVE); CLARITY,URINE CLEAR; COLOR,URINE YELLOW; GLUCOSE, URINE (UA) NEGATIVE (NEGATIVE); KETONES,URINE NEGATIVE (NEGATIVE); LEUKOCYTE ESTERASE ,URINE NEGATIVE (NEGATIVE); NITRITE,URINE NEGATIVE (NEGATIVE); PROTEIN,URINE TRACE (NEGATIVE)
[2022-08-31 12:30] LABS: BACTERIA,URINE NEGATIVE /HPF; RBC,URINE 0-2 /HPF
[2022-08-31 12:30] LABS: ALBUMIN 3.6 GM/DL (3.2-4.5); POTASSIUM 3.6 MMOL/L (3.6-5.0)
[2022-08-31 12:31] LABS: BASOPHILS # (AUTO) 0.1 10^3/uL (0.0-0.1); BASOPHILS % (AUTO) 0 % (0-10); CALCIUM 8.7 MG/DL (8.5-10.1); EOSINOPHILS # (AUTO) 0.2 10^3/uL (0.0-0.3); EOSINOPHILS % (AUTO) 2 % (0-10); HEMATOCRIT 37 % (35-52); HEMOGLOBIN 12.4 g/dL (11.5-16.0); LYMPHOCYTES % (AUTO) 18 % (12-44); MEAN CORPUSCULAR HEMOGLOBIN 30 pg (25-34); MEAN CORPUSCULAR HGB CONC 33 g/dL (32-36); MEAN CORPUSCULAR VOLUME 89 fL (80-99); MEAN PLATELET VOLUME 10.4 fL (9.0-12.2); MONOCYTES # (AUTO) 0.6 10^3/uL (0.0-1.0); MONOCYTES % (AUTO) 5 % (0-12); NEUTROPHILS # (AUTO) 8.2 10^3/uL (1.8-7.8); NEUTROPHILS % (AUTO) 73 % (42-75); PLATELET COUNT 325 10^3/uL (130-400); WHITE BLOOD COUNT 11.2 10^3/uL (4.3-11.0)
[2022-08-31 12:33] LABS: TOTAL PROTEIN 6.8 GM/DL (6.4-8.2)
[2022-08-31 12:35] LABS: BILIRUBIN,TOTAL 0.3 MG/DL (0.1-1.0)
[2022-08-31 12:36] LABS: CREATININE SERUM 0.59 MG/DL (0.60-1.30)
[2022-08-31] MEDS ORDERED: KETOROLAC 30 MG/ML VIAL IVP ONE (13:15)
[2022-08-31 13:46] VITALS: BP 140/85
== END 2022-08-31 13:46 | disposition home or self-care (01) ==
LOC: EDUNIT# 11:45 → ER 11:47
DX: O89.4 Spinal and epidural anesthesia-induced headache during the puerperium (principal); O16.5 Unspecified maternal hypertension, complicating the puerperium; Z28.311 Partially vaccinated for COVID-19
CPT/HCPCS: 36415; 80053; 81000; 83615; 84550; 85025